=== PATIENT | female | born 1990 | race African-American/Black ===

== ENCOUNTER 2016-06-24 21:18 | Emergency (ER) | payer MEDICAID, OTHER ==
[~2016-06-24] VITALS: Ht 160 cm; Wt 63.5 kg
[2016-06-24 21:32] VITALS: BP 145/80
== END 2016-06-25 00:27 | disposition home or self-care (01) ==
LOC: ER 21:29
DX: J02.9 Acute pharyngitis, unspecified (principal); M54.2 Cervicalgia